=== PATIENT | female | born 1955 | race Caucasian/White ===

== ENCOUNTER 2019-12-07 12:32 | Outpatient (CLI) | payer OTHER, SELFPAY ==
--- NOTE | ~2019-12-07 | XR_ITS ---
XR chest 2V DATE: 12/07/2019 13:08 INDICATION: Cough, vomiting. TECHNIQUE: PA and lateral views COMPARISON: 08/22/2019 CT chest 08/15/2019 2 view chest FINDINGS: There is elevation of the right leaf of the diaphragm compared to 08/15/2019. Previous repo rted 1 cm right midlung nodule is no longer evident. No pulmonary infiltrate or consolidation, pleural effusion or pulmonary vascular congestion or pneumo thorax is detected. IMPRESSION: Probable interval resection of right lung mass since 08/15/2019 and 08/22/2019 No active cardiopulmonary disease Reviewed, dictated and finalized at location A.
== END 2019-12-07 12:33 | disposition home or self-care (01) ==
DX: R05 Cough (principal); R11.10 Vomiting, unspecified
CPT/HCPCS: 71046

== ENCOUNTER 2019-12-15 14:43 | Outpatient (CLI) | payer OTHER, SELFPAY ==
--- NOTE | ~2019-12-15 | CT_ITS ---
EXAMINATION: CT chest w con DATE: 12/15/2019 15:33 INDICATION: Cough TECHNIQUE: Computed tomography (CT) of the chest was performed with 75 cc Omnipaque 350 intravenous c ontrast. The dose-length product was 172.60 mGy-cm. Automated exposure control and iterative reconstr uction technique were employed. COMPARISON: CT dated 08/22/2019 and chest x-ray dated 12/07/2019 FINDINGS: There are surgical changes of right middle lobectomy with interval resection of right middl e lobe mass. Small right pleural effusion with dependent atelectasis. No endobronchial lesions. There is a nonenlarged right paratracheal lymph node measuring 6 mm short axis. No mediastinal or hilar ly mphadenopathy. No evidence for aortic aneurysm or dissection. No focal airspace consolidation. No res idual pulmonary nodules or masses. No endobronchial lesions. Fatty infiltration of the liver. Otherwi se, the visualized aspects of the upper abdomen are unremarkable. IMPRESSION: 1. Small right pleural effusion with underlying compressive atelectasis. 2: Interval surgical changes consistent with right middle lobectomy with resection of associated mass . Reviewed, dictated and finalized at location A. IMPRESSION: 1. Small right pleural effusion with underlying compressive atelectasis. 2: Interval surgical changes consistent with right middle lobectomy with resect ion of associated mass.
[2019-12-15 15:24] LABS: Estimated Glomerular Filt Rate > 60
== END 2019-12-15 14:44 | disposition home or self-care (01) ==
LOC: ANHIMG 14:49
DX: R05 Cough (principal); J90 Pleural effusion, not elsewhere classified; J98.11 Atelectasis; Z90.2 Acquired absence of lung [part of]
CPT/HCPCS: 36415; 71260; Q9967

== ENCOUNTER → 2020-11-13 00:28 | Outpatient (CLI) | payer OTHER, SELFPAY ==
[2020-11-13 18:31] LABS: SARS-CoV-2 RNA PCR Negative
== END ==
PROVIDERS: Visit Provider Internal Medicine Gastroenterology
DX: Z01.812 Encounter for preprocedural laboratory examination (principal); Z20.822 Contact with and (suspected) exposure to COVID-19
CPT/HCPCS: C9803; U0003; U0005

== ENCOUNTER 2020-11-16 04:39 | Day surgery (SDC) | payer OTHER, SELFPAY ==
[2020-11-06 11:42] VITALS: BMI 28.5
[2020-11-16 09:56] VITALS: BP 120/73; PULSE 71; RESP 20; TEMP 36.3; O2SAT 100; BMI 28.5
[2020-11-16] MEDS: LACTATED RINGERS 1,000 ML 150 ML IV CONT (10:09)
--- NOTE | 2020-11-16 10:26 | WPDANESEPPF ---
Anes - Initial Pre Proc Eval Procedure: Operation Date: 11/16/20 10:30 Proposed Procedures p Esophagogastroduodenoscopy - Phu Alvarado MD Date/Time: 11/16/20 10:26 Surgeon: Phu Alvarado MD Pre Op Diagnosis: Dysphagia Patient Data Age: 65 Gender: F Height: 5 ft 3 in Weight: 73 kg Last Vital Signs Temp 97.3 F L 11/16/20 09:56 Pulse 71 11/16/20 09:56 Resp 20 11/16/20 09:56 BP 120/73 11/16/20 09:56 Pulse Ox 100 11/16/20 09:56 Allergies Allergy/AdvReac Type Severity Reaction Status Date / Time Sulfa (Sulfonamide Allergy Unknown Verified 11/22/18 12:43 Antibiotics) Home Medications Medication Instructions Recorded Confirmed Type aspirin 81 mg tablet,delayed 81 mg PO DAILY 06/23/19 11/06/20 History release hydroxychloroquine 200 mg tablet 400 mg PO DAILY tablet 06/23/19 11/06/20 History vitamin B12 500 mcg-folic acid 400 1 tablet PO DAILY 06/23/19 11/06/20 History mcg tablet estradiol 1 mg tablet 1 mg PO DAILY #90 tablet 03/29/20 11/06/20 Rx azathioprine 50 mg tablet 50 mg PO . b.i.d. tablet 05/02/20 11/06/20 History levothyroxine 75 mcg tablet 75 mcg PO DAILY #90 tablet 05/02/20 11/06/20 Rx amitriptyline 50 mg tablet 100 mg PO . q.h.s. #180 tablet 10/30/20 11/06/20 Rx ergocalciferol (vitamin D2) 1,250 50,000 unit PO WEEKLY #12 cap 10/30/20 11/06/20 Rx mcg (50,000 unit) capsule Patient hx anesthesia problems: none Family hx anesthesia problems: none PMFSH Past Medical History Medical History (Updated 10/30/20 @ 14:00 by Papito Rodriguez MD) Azathioprine-induced leukopenia BMI 27.0-27.9,adult Chronic idiopathic constipation Dysphagia GERD with esophagitis Migraine with aura and without status migrainosus Surgical History Surgical History (Updated 05/02/20 @ 14:01 by Jeremias Rose RECRUITING ASSISTANT) History of lung surgery partial right middle lobe removal [place] 2019 Family History Family History (Updated 11/22/18 @ 12:47 by DOCTOR UNKNOWN) Mother Diabetes mellitus Hypertension Patient's mother is in good health Family history of cardiovascular disease Grandparent Diabetes mellitus, Onset Age: 70 Family history of lung cancer Father Patient's father is , Onset Age: 56 Social History Social History Smoking status: Never smoker Alcohol intake: never Substance use: never Substance use type: does not use Living arrangements: with family Spiritual care concerns: No Anes - Eval Final PreProcedure Day of Procedure 11/16/20 10:26 Patient weight: normal Heart: regular rate and rhythm Lungs: clear to auscultation Airway: Mallampati scale class II Neurological: alert and oriented Last oral intake: >/= 8 hours ASA classification: II Emergent: no Anesthetic plan: proceed Anesthesia type and monitoring: general GIVS and standard monitoring Informed Consent: The patient's anesthetic plan and its attendant risks and benefits were discussed with the patient/family/POA. Questions were solicited and answers provided to the satisfaction of the patient/family/POA.
--- NOTE | 2020-11-16 10:29 | PM.HPGS ---
History of Present Illness History of Present Illness Consent: Risks, benefits, and alternatives have been discussed and questions answered. Patient agrees to proceed with procedure. Chief complaint: Dysphagia Narrative: Diana Miranda is a 65 year old female with dysphagia for solid and liquids. This began over a year ago. Not daily, but frequently she will seem to choke on a sip of water or beverage. meat sometimes will cause her to have to stop eating for a minute or 2 until it passes. She does not get heartburn. She has not been losing weight. She does have connective tissue disease diagnosed as lupus. She also has Raynaud's and Sjogren's syndrome, suggestive of scleroderma Review of Systems Review of Systems: All systems reviewed & are unremarkable except as noted in HPI and below PMFSH Past Medical History Medical History Azathioprine-induced leukopenia BMI 27.0-27.9,adult Chronic idiopathic constipation Dysphagia GERD with esophagitis Migraine with aura and without status migrainosus Surgical History Surgical History History of lung surgery partial right middle lobe removal 2019 Family History Family History Mother Diabetes mellitus Hypertension Patient's mother is in good health Family history of cardiovascular disease Grandparent Diabetes mellitus, Onset Age: 70 Family history of lung cancer Father Patient's father is , Onset Age: 56 Social History Social History Smoking status: Never smoker Alcohol intake: never Substance use: never Substance use type: does not use Living arrangements: with family Spiritual care concerns: No Meds Home Medications and Allergies Home Medications Medication Instructions Recorded Confirmed Type aspirin 81 mg tablet,delayed 81 mg PO DAILY 06/23/19 11/06/20 History release hydroxychloroquine 200 mg tablet 400 mg PO DAILY tablet 06/23/19 11/06/20 History vitamin B12 500 mcg-folic acid 400 1 tablet PO DAILY 06/23/19 11/06/20 History mcg tablet estradiol 1 mg tablet 1 mg PO DAILY #90 tablet 03/29/20 11/06/20 Rx azathioprine 50 mg tablet 50 mg PO . b.i.d. tablet 05/02/20 11/06/20 History levothyroxine 75 mcg tablet 75 mcg PO DAILY #90 tablet 05/02/20 11/06/20 Rx amitriptyline 50 mg tablet 100 mg PO . q.h.s. #180 tablet 10/30/20 11/06/20 Rx ergocalciferol (vitamin D2) 1,250 50,000 unit PO WEEKLY #12 cap 10/30/20 11/06/20 Rx mcg (50,000 unit) capsule Allergies Allergy/AdvReac Type Severity Reaction Status Date / Time Sulfa (Sulfonamide Allergy Unknown Verified 11/22/18 12:43 Antibiotics) Vital Signs Vital Signs - 24 hr 11/16/20 09:56 Temperature 36.3 C L Pulse Rate 71 Respiratory Rate 20 Blood Pressure 120/73 Pulse Oximetry 100 Exam Resp: Auscultation: clear to auscultation bilaterally Cardio: Rate: regular rate Rhythm: regular rhythm GI: GI Palp: Yes Soft to palpation and No Tenderness to palpation present (GI) Assessment and Plan Assessment and plan (1) Dysphagia: Code(s): R13.10 - Dysphagia, unspecified Status: Acute Assessment and Plan: EGD with possible biopsy or dilatation or cautery.
[2020-11-16 10:53] VITALS: BP 116/59; PULSE 68; RESP 23; O2SAT 97
[2020-11-16 11:03] VITALS: BP 94/59; PULSE 59; RESP 15; O2SAT 98
[2020-11-16 11:13] VITALS: BP 94/59; PULSE 59; RESP 16; O2SAT 99
== END 2020-11-16 11:34 | disposition home or self-care (01) ==
PROVIDERS: PCP Family Medicine; Visit Provider Internal Medicine Gastroenterology
PROC: 0DJ08ZZ Inspection of Upper Intestinal Tract, Via Natural or Artificial Opening Endoscopic (ICD-10-PCS; CPT 43235; principal; 2020-11-16 10:30)
DX: R13.19 Other dysphagia (principal); K21.9 Gastro-esophageal reflux disease without esophagitis; K29.70 Gastritis, unspecified, without bleeding; Z79.82 Long term (current) use of aspirin
CPT/HCPCS: 43239; 87081; 88305; C9803; J2001; J2704; J7120; U0003; U0005

== ENCOUNTER 2022-05-06 14:35 | Emergency (ER) | payer MEDICARE, OTHER, SELFPAY ==
[2022-05-06] VITALS (13 sets, daily range): BP systolic 107–121; BP diastolic 62–88; PULSE 69–80; RESP 14–29; TEMP 36.7; O2SAT 96–100
--- NOTE | ~2022-05-06 | CT_ITS ---
EXAMINATION: CT abdomen pelvis w con DATE: 05/06/2022 17:22 INDICATION: Left lower quadrant abdominal pain for 4 days TECHNIQUE: Computed tomography (CT) of the abdomen and pelvis was performed with 100 CC Omnipaque 350 intravenous contrast. Automated exposure control and iterative reconstruction technique were employe d. Exam dose: 576.89 mGy-cm total exam DLP. COMPARISON: 04/10/2016 Limited abdominal ultrasound examination, reported normal 01/05/2019 CT abdomen pelvis FINDINGS: The lung bases are clear of infiltrate or consolidation. Normal heart size. No pericardial or pleural effusion. No hepatic, splenic, pancreatic, adrenal or renal space-occupying mass lesion is detected. The gallbl adder is present. No bile duct or pancreatic duct dilatation. No urinary tract calculus or hydrourete ronephrosis. The urinary bladder is unremarkable. Status post hysterectomy. Normal caliber of the abdominal aorta. No intraperitoneal or retroperitoneal or pelvic mass lesion or adenopathy or ascites is noted. Epiploic appendagitis noted in the anterior aspect of the left lower quadrant. This is benign and usu ally self-limited. Normal appendix. No bowel obstruction or bowel wall thickening, pneumatosis or intraperitoneal free a ir is noted otherwise. Moderate degenerative disc disease at L1-2. There is Schmorl's node at the inferior aspect of L1. Severe degenerative disc disease and approximately 3.9 mm retrolisthesis at L2-3. Mild degenerative disc disease and approximately 2.8 mm retrolisthesis at L3-4. Mild degenerative disc disease and grade 1 anterolisthesis at L4-5. There is prominent degenerative c hange at the apophyseal joints at L4-5 and L5-S1. No suspicious osteolytic or osteoblastic lesions are noted. IMPRESSION: Epiploic appendagitis noted in the anterior aspect of the left lower quadrant. This is b enign and usually self-limited. Reviewed, dictated and finalized at Location A. Reviewed, dictated and finalized at location B. IMPRESSION: Epiploic appendagitis noted in the anterior aspect of the left low er quadrant. This is benign and usually self-limited.
[2022-05-06 14:50] LABS: Basophils Percent Auto 0.5 % (0.2-1.2); Eosinophils Absolute Auto 0.1 K/mm3 (0-0.3); Eosinophils Percent Auto 0.9 % (0-4.4); Hematocrit 43.1 % (37.0-47.0); Hemoglobin 13.8 g/dL (12.0-15.0); Immature Granulocyte Absolute 0.02 K/mm3 (0.00-0.031); Immature Granulocyte Percent A 0.4 % (0-0.5); Lymphocytes Absolute Auto 1.15 K/mm3 (0.9-3.2); Lymphocytes Percent Auto 20.7 % (18.3-44.2); Mean Corpuscular Hemoglobin 34.2 pg (26-34); Mean Corpuscular Volume 106.9 fl (80-100); Monocytes Absolute Auto 0.6 K/mm3 (0.1-0.6); Monocytes Percent Auto 11.5 % (2.6-8.5); Neutrophils Absolute Auto 3.7 K/mm3 (1.3-6.7); Platelet Count Result 241 k/mm3 (150-375); Red Blood Count 4.03 M/mm3 (4.2-5.4); Red Cell Distribution Width 12.9 % (11.5-14.5); White Blood Count 5.6 K/mm3 (4.5-10.0)
[2022-05-06 15:00] LABS: Alanine Aminotransferase 23 U/L (6-35); Albumin Level 4.1 g/dL (3.5-5.1); Alkaline Phosphatase 112 U/L (38-126); Anion Gap 12 mmol/L (8-16); Aspartate Amino Transferase 30 U/L (14-36); Bilirubin,Total 0.6 mg/dL (0.2-1.3); Blood Urea Nitrogen 15 mg/dL (7-17); Calcium 8.9 mg/dL (8.4-10.2); Carbon Dioxide 30 mmol/L (22-30); Chloride 98 mmol/L (98-107); Estimated CRCL calculation 47 ml/min; Estimated Glomerular Filt Rate 56; Glucose 98 mg/dL (65-110); Lipase 22 U/L (23-300); Potassium 3.6 mmol/L (3.4-5.0); Sodium 140 mmol/L (137-145)
[2022-05-06 15:20] LABS: Appearance Urine Clear (Clear); Bilirubin Urine Negative (Negative); Blood Urine Negative (Negative); Color Urine Yellow (Yellow); Glucose Urine UA Negative (Negative); Ketones Urine Negative (Negative); Leukocyte Esterase Ur Trace LEU/UL (Negative); Nitrate Urine Negative (Negative); Protein Urine Negative (Negative); Specific Grav Ur 1.015 (1.001-1.035); Urobilinogen Urine 0.2 mg/dL (<2.0); pH Urine 5.5 (5.0-9.0)
[2022-05-06 15:41] LABS: Bacteria Urine Trace /hpf; RBC Urine 0-2 /hpf (0-2); Squamous Epithelial Cell Urine Occasional /hpf (Few)
[2022-05-06 15:42] LABS: Add Urine Microscopic? YES
--- NOTE | 2022-05-06 18:33 | ED.GENADULT ---
HPI - General Adult General Chief complaint: Abdominal Pain Stated complaint: left lower quadrant pain Time Seen by Provider: 05/06/22 15:51 History of Present Illness HPI narrative: Patient is a 66-year-old female who presents ER with left lower quadrant abdominal pain. Ongoing for 5 days. Improving today but referred here by her superior court judge. Patient immunosuppressed due to her lupus. No diarrhea. No fevers or chills or sweats. No vomiting. Pain was worse with moving and twisting and direct palpation. Has had mild relief with leftover [place] at home. Related Data Home Medications Medication Instructions Recorded Confirmed aspirin 81 mg tablet,delayed 81 mg PO DAILY 06/23/19 11/12/21 release (Adult Aspirin Regimen) hydroxychloroquine 200 mg tablet 400 mg PO DAILY 06/23/19 11/12/21 (Plaquenil) vitamin B12 500 mcg-folic acid 400 1 tablet PO DAILY 06/23/19 11/12/21 mcg tablet azathioprine 50 mg tablet 50 mg PO . b.i.d. 05/02/20 11/12/21 Allergies Allergy/AdvReac Type Severity Reaction Status Date / Time Sulfa (Sulfonamide Allergy Intermediate Other Verified 11/12/21 13:35 Antibiotics) Review of Systems Review of Systems: All systems reviewed & are unremarkable except as noted in HPI and below Constitutional: Constitutional: Denies chills, Denies fatigue and Denies fever(s) Cardiovascular: Cardiovascular: Denies chest pain and Denies rapid heart rate Respiratory: Respiratory: Denies cough and Denies dyspnea Gastrointestinal: Gastrointestinal: Reports abdominal pain, Denies diarrhea, Denies nausea and Denies vomiting Genitourinary: Genitourinary: Denies nocturia, Denies dysuria and Denies flank pain [facility] Past Medical History Medical History (Updated 05/06/22 @ 18:35 by Vincenzo Fisher MD) Acute non-recurrent maxillary sinusitis Azathioprine-induced leukopenia BMI 27.0-27.9,adult Chronic idiopathic constipation Dysphagia Exposure to COVID-19 virus (~08/14/21) patient with 3 doses of COVID vaccination. with COVID for 1 week. Patient with symptoms 08/19/2021 GERD with esophagitis EGD 11/16/2020 with nonerosive esophagitis and gastritis Hypothyroidism, unspecified Lupus Migraine with aura and without status migrainosus Mixed hyperlipidemia Raynaud's disease without gangrene Sjogren's syndrome with keratoconjunctivitis sicca Vitamin D deficiency, unspecified Surgical History Surgical History (Updated 11/12/21 @ 16:35 by Lacy Hare MD) H/O hysterectomy with oophorectomy History of lung surgery partial right middle lobe removal 2019 Family History Family History Mother Diabetes mellitus Hypertension Patient's mother is in good health Family history of cardiovascular disease Grandparent Diabetes mellitus, Onset Age: 70 Family history of lung cancer Father Patient's father is , Onset Age: 56 Social History Social History (Updated 11/12/21 @ 13:38 by Safia Bansal MA) Smoking status: Never smoker Alcohol intake: never Substance use: never Substance use type: does not use Gender identity (if verbalized by the patient): Female Spiritual care concerns: No Exam Narrative: GENERAL: Well-appearing, well-nourished, and in no acute distress. HEAD: Normocephalic, atraumatic. CHEST: Clear to auscultation. No respiratory distress. HEART: Regular rate and rhythm. Normal peripheral pulses. ABDOMEN: Soft, tender palpation left lower quadrant with guarding, nondistended, normal active bowel sounds. EXTREMITIES: Normal range of motion. No edema. SKIN: Warm, dry, no rash. NEURO: Alert and oriented x3. PSYCH: Normal mood and affect. Course Course Emergency Course: Informed of results. Verbalized understanding. Discharge home. Vital Signs Vital signs: Vital Signs Temperature 98.1 F 05/06/22 14:36 Pulse Rate 70 05/06/22 14:36 Respiratory Rate 16
== END 2022-05-06 18:52 | disposition home or self-care (01) ==
PROVIDERS: Emergency Provider Emergency Medicine; PCP Nurse Practitioner Family
DX: K63.89 Other specified diseases of intestine (principal); K21.9 Gastro-esophageal reflux disease without esophagitis; E03.9 Hypothyroidism, unspecified; E78.5 Hyperlipidemia, unspecified
CPT/HCPCS: 36415; 74177; 80053; 81001; 83690; 85025; 99284; Q9967

== ENCOUNTER 2022-10-20 08:32 | Emergency (ER) | payer MEDICARE, OTHER, SELFPAY ==
--- NOTE | ~2022-10-20 | XR_ITS ---
EXAMINATION: XR chest 2V DATE: 10/20/2022 09:00 INDICATION: Asthma attack presenting with cough and shortness of breath. TECHNIQUE: PA and lateral views of the chest were obtained. COMPARISON: Chest radiograph dated 12/07/[address] dated 12/15/2019 FINDINGS: Volume loss in the right hemithorax with elevation of the right hemidiaphragm with subtle suture line in the right hilar and infrahilar regions consistent with a prior right middle lobectomy as seen on prior CT. No airspace opacities, pulmonary edema, pleural effusion or pneumothorax. The cardiomediast inal silhouette is normal. Mild thoracic spondylosis. IMPRESSION: 1. Chronic volume loss right hemithorax consistent with prior right middle lobectomy. No acute cardio pulmonary disease. Reviewed, dictated and finalized at location A. PRESS OPERATOR IMPRESSION: 1. Chronic volume loss right hemithorax consistent with prior right middle lobe ctomy. No acute cardiopulmonary disease.
[2022-10-20 08:43] VITALS: BP 127/68; PULSE 82; RESP 20; TEMP 37.2; O2SAT 94
--- NOTE | 2022-10-20 08:47 | ED.GENADULT ---
HPI - General Adult General Chief complaint: Upper Respiratory Infection Stated complaint: SOB Time Seen by Provider: 10/20/22 09:04 Source: patient, RN notes reviewed and old records reviewed Mode of arrival: ambulatory Limitations: no limitations History of Present Illness HPI narrative: 67-year-old female presents to the [facility] with complaints of shortness of breath for the last 3-4 days. Patient states that when she had her lobectomy they told her she had asthma. Has not had any type of symptoms but for the last 3-4 days thinks she is having an asthma attack. Has been taking Mucinex and using her rescue inhaler Onset (ago): day(s) (3-4) Relieving factors: none Associated symptoms: cough and shortness of breath Treatments prior to arrival: other (Albuterol, Mucinex) Related Data Home Medications Medication Instructions Recorded Confirmed aspirin 81 mg tablet,delayed 81 mg PO DAILY 06/23/19 10/20/22 release (Adult Aspirin Regimen) hydroxychloroquine 200 mg tablet 400 mg PO DAILY 06/23/19 10/20/22 (Plaquenil) vitamin B12 500 mcg-folic acid 400 1 tablet PO DAILY 06/23/19 10/20/22 mcg tablet azathioprine 50 mg tablet 50 mg PO . b.i.d. 05/02/20 10/20/22 Allergies Allergy/AdvReac Type Severity Reaction Status Date / Time Sulfa (Sulfonamide Allergy Intermediate Other Verified 10/20/22 08:47 Antibiotics) Review of Systems Review of Systems: All systems reviewed & are unremarkable except as noted in HPI and below Constitutional: Constitutional: Reports no additional constitutional complaints Eyes: Eyes: Reports no additional eye complaints ENT: Reports system reviewed and no additional complaints, except as documented Cardiovascular: Cardiovascular: Reports no additional cardiovascular complaints, Denies chest pain and Denies dyspnea Respiratory: Respiratory: Reports as per HPI, Reports chest congestion, Reports cough, Denies hemoptysis, Reports dyspnea and Reports wheezing Gastrointestinal: Gastrointestinal: Reports no additional gastrointestinal complaints, Denies abdominal pain, Denies nausea and Denies vomiting Musculoskeletal: Musculoskeletal: Reports no additional musculoskeletal complaints Integumentary/Breasts: Skin/Breast: Reports system reviewed and no additional complaints, except as docu Neurologic: Reports system reviewed and no additional complaints, except as documented Psychiatric: Psychiatric: Reports no additional psychiatric complaints Allergic/Immunologic: Allergic/Immunologic: Reports no additional allergic/immunologic complaints PMFSH Past Medical History Medical History Acute non-recurrent maxillary sinusitis Azathioprine-induced leukopenia BMI 27.0-27.9,adult Breast cancer screening by mammogram normal mammogram 09/19/2022. Chronic idiopathic constipation Dysphagia Encounter for osteoporosis screening in asymptomatic postmenopausal patient (09/19/22) DEXA scan 09/19/2022 with T-score 0.9 at the lumbar spine and 0.1 at the hips, normal. Exposure to COVID-19 virus (~08/14/21) patient with 3 doses of COVID vaccination. with COVID for 1 week. Patient with symptoms 08/19/2021 GERD with esophagitis EGD 11/16/2020 with nonerosive esophagitis and gastritis Hypothyroidism, unspecified Lupus Migraine with aura and without status migrainosus Mixed hyperlipidemia Raynaud's disease without gangrene Sjogren's syndrome with keratoconjunctivitis sicca Vitamin D deficiency, unspecified Surgical History Surgical History H/O hysterectomy with oophorectomy History of lung surgery partial right middle lobe removal 2019 Family History Family History Mother Diabetes mellitus Hypertension Patient's mother is in good health Family history of cardiovascular disease Grandparent Diabetes mellitus,
[2022-10-20 09:00] VITALS: O2SAT 94
[2022-10-20] MEDS: IPRATROPIUM BR 0.02% INH SOLN 0.5 MG/2.5 ML VIAL INHALATION (09:07)
[2022-10-20] MEDS: ALBUTEROL SULFATE NEB 2.5 MG/3 ML INH INHALATION (09:07)
[2022-10-20 09:45] VITALS: O2SAT 93
[2022-10-20 09:57] VITALS: PULSE 82; O2SAT 93
== END 2022-10-20 09:57 | disposition home or self-care (01) ==
LOC: EXPCOLL 08:35
PROVIDERS: Emergency Provider Nurse Practitioner; PCP Nurse Practitioner Family
DX: J45.901 Unspecified asthma with (acute) exacerbation (principal); Z20.822 Contact with and (suspected) exposure to COVID-19; K20.90 Esophagitis, unspecified without bleeding; E03.9 Hypothyroidism, unspecified; E78.2 Mixed hyperlipidemia; I73.00 Raynaud's syndrome without gangrene; M35.00 Sjogren syndrome, unspecified; Z86.16 Personal history of COVID-19; Z90.2 Acquired absence of lung [part of]
CPT/HCPCS: 71046; 87426; 87804; 94640; 99213; C9803; G0463

== ENCOUNTER 2022-10-20 10:13 | Emergency (ER) | payer MEDICARE, OTHER, SELFPAY ==
[2022-10-20] VITALS (18 sets, daily range): BP systolic 97–121; BP diastolic 47–67; PULSE 74–93; RESP 16–25; TEMP 36.5; O2SAT 93–100
[2022-10-20] MEDS: ALBUTEROL SULFATE NEB 2.5 MG/3 ML INH 15 MG INHALATION (11:25)
[2022-10-20] MEDS: IPRATROPIUM BR 0.02% INH SOLN 0.5 MG/2.5 ML VIAL 1.5 MG INHALATION (11:25)
[2022-10-20] MEDS: methylPREDNISolone SOD SUCC 125 MG VIAL IV PUSH (11:40)
[2022-10-20 11:48] LABS: Basophils Percent Auto 0.6 % (0.2-1.2); Hematocrit 39.3 % (37.0-47.0); Hemoglobin 12.7 g/dL (12.0-15.0); Immature Granulocyte Absolute 0.01 K/mm3 (0.00-0.031); Immature Granulocyte Percent A 0.2 % (0-0.5); Lymphocytes Absolute Auto 0.94 K/mm3 (0.9-3.2); Lymphocytes Percent Auto 17.3 % (18.3-44.2); Mean Corpuscular HGB Conc 32.3 g/dl (32-36); Mean Corpuscular Volume 105.4 fl (80-100); Monocytes Absolute Auto 0.5 K/mm3 (0.1-0.6); Neutrophils Percent Auto 72.9 % (45.5-73.1); Platelet Count Result 191 k/mm3 (150-375); Red Blood Count 3.73 M/mm3 (4.2-5.4); Red Cell Distribution Width 13.2 % (11.5-14.5); White Blood Count 5.4 K/mm3 (4.5-10.0)
[2022-10-20 11:58] LABS: Alanine Aminotransferase 23 U/L (6-35); Albumin Level 3.9 g/dL (3.5-5.1); Alkaline Phosphatase 98 U/L (38-126); Anion Gap 6 mmol/L (8-16); Aspartate Amino Transferase 31 U/L (14-36); Bilirubin,Total 0.7 mg/dL (0.2-1.3); Blood Urea Nitrogen 10 mg/dL (7-17); Calcium 8.1 mg/dL (8.4-10.2); Carbon Dioxide 27 mmol/L (22-30); Chloride 100 mmol/L (98-107); Estimated CRCL calculation 48 ml/min; Estimated Glomerular Filt Rate 55; Glucose 91 mg/dL (65-110); Potassium 3.6 mmol/L (3.4-5.0); Sodium 133 mmol/L (137-145)
[2022-10-20 12:16] LABS: Macrocytosis 1+ (NORMAL); Platelet Estimate Adequate (Adequate); Schistocytes None Seen (NORMAL)
--- NOTE | 2022-10-20 12:27 | ED.SOB ---
HPI - SOB/Dyspnea General Chief Complaint: Shortness of Breath/Dyspnea Stated Complaint: shortness of breath Time Seen by Provider: 10/20/22 11:07 History of Present Illness HPI Narrative: Patient is a 67-year-old female who presents ER with shortness of breath. Ongoing for 4 days. Associated with frequent coughing. Went to urgent care and was referred here due to her abnormal lung sounds after nebulizer treatment. No hypoxia. Negative COVID and chest x-ray. Patient has no chest pain or chest pressure. No known sick contacts. No fevers or chills or sweats. Related Data Home Medications Medication Instructions Recorded Confirmed aspirin 81 mg tablet,delayed 81 mg PO DAILY 06/23/19 10/20/22 release (Adult Aspirin Regimen) hydroxychloroquine 200 mg tablet 400 mg PO DAILY 06/23/19 10/20/22 (Plaquenil) vitamin B12 500 mcg-folic acid 400 1 tablet PO DAILY 06/23/19 10/20/22 mcg tablet Allergies Allergy/AdvReac Type Severity Reaction Status Date / Time Sulfa (Sulfonamide Allergy Intermediate Other Verified 10/20/22 08:47 Antibiotics) Review of Systems Review of Systems: All systems reviewed & are unremarkable except as noted in HPI and below Constitutional: Constitutional: Denies chills, Reports fatigue and Denies fever(s) ENT: Reports nasal congestion and Reports sore throat Cardiovascular: Cardiovascular: Denies chest pain, Denies rapid heart rate and Denies radiating jaw, neck or arm pain Respiratory: Respiratory: Reports cough, Reports dyspnea and Reports wheezing Gastrointestinal: Gastrointestinal: Denies abdominal pain, Denies nausea and Denies vomiting PMFSH Past Medical History Medical History Acute non-recurrent maxillary sinusitis Azathioprine-induced leukopenia BMI 27.0-27.9,adult Breast cancer screening by mammogram normal mammogram 09/19/2022. Chronic idiopathic constipation Dysphagia Encounter for osteoporosis screening in asymptomatic postmenopausal patient (09/19/22) DEXA scan 09/19/2022 with T-score 0.9 at the lumbar spine and 0.1 at the hips, normal. Exposure to COVID-19 virus (~08/14/21) patient with 3 doses of COVID vaccination. with COVID for 1 week. Patient with symptoms 08/19/2021 GERD with esophagitis EGD 11/16/2020 with nonerosive esophagitis and gastritis Hypothyroidism, unspecified Lupus Migraine with aura and without status migrainosus Mixed hyperlipidemia Raynaud's disease without gangrene Sjogren's syndrome with keratoconjunctivitis sicca Vitamin D deficiency, unspecified Surgical History Surgical History H/O hysterectomy with oophorectomy History of lung surgery partial right middle lobe removal 2019 Family History Family History Mother Diabetes mellitus Hypertension Patient's mother is in good health Family history of cardiovascular disease Grandparent Diabetes mellitus, Onset Age: 70 Family history of lung cancer Father Patient's father is , Onset Age: 56 Social History Social History Smoking status: Never smoker Alcohol intake: never Substance use: never Substance use type: does not use Living arrangements: with family Occupation/Education: retired Gender identity (if verbalized by the patient): Female Spiritual care concerns: No Exam Narrative: GENERAL: Well-appearing, well-nourished, and in no acute distress. HEAD: Normocephalic, atraumatic. ENT: Mucous membranes moist. NECK: Supple. CHEST: Coarse wheezing and rales throughout. No respiratory distress. HEART: Regular rate and rhythm. Normal peripheral pulses. ABDOMEN: Soft, nontender, nondistended. EXTREMITIES: Normal range of motion. No edema. SKIN: Warm, dry, no rash. NEURO: Alert and oriented x3. PSYCH:
== END 2022-10-20 14:33 | disposition home or self-care (01) ==
PROVIDERS: Emergency Provider Emergency Medicine; PCP Nurse Practitioner Family
DX: J40 Bronchitis, not specified as acute or chronic (principal); E78.2 Mixed hyperlipidemia; I73.00 Raynaud's syndrome without gangrene; M35.01 Sjogren syndrome with keratoconjunctivitis; K21.00 Gastro-esophageal reflux disease with esophagitis, without bleeding; E03.9 Hypothyroidism, unspecified; E55.9 Vitamin D deficiency, unspecified; Z90.2 Acquired absence of lung [part of]; Z79.82 Long term (current) use of aspirin; Z90.710 Acquired absence of both cervix and uterus
CPT/HCPCS: 36415; 71046; 80053; 85025; 87426; 87804; 94640; 94664; 96374; 99284; C9803; J2930

== ENCOUNTER 2023-02-26 09:16 | Outpatient (CLI) | payer MEDICARE, OTHER, SELFPAY ==
--- NOTE | ~2023-02-26 | CT_ITS ---
EXAMINATION: CT diagnostic chest wo con DATE: 02/26/2023 09:33 INDICATION: History of partial right pneumonectomy TECHNIQUE: Computed tomography (CT) of the chest was performed without intravenous contrast. The dose -length product (DLP) was 164.02 mGy-cm. Automated exposure control and iterative reconstruction tech [employer] were employed. COMPARISON: 12/15/2019 FINDINGS: There are changes of right middle lobectomy. The lungs are free of acute opacities. No pleu ral effusion or pneumothorax. No pathologically enlarged thoracic lymph nodes are identified. The hea rt size is normal. Calcified coronary artery atherosclerosis is noted. There is mild thoracic spondyl osis. IMPRESSION: 1. Changes of right middle lobectomy without acute cardiopulmonary abnormality. Reviewed, dictated and finalized at location L.
== END 2023-02-26 09:17 | disposition home or self-care (01) ==
PROVIDERS: PCP Nurse Practitioner Family; Visit Provider Nurse Practitioner
DX: Z90.2 Acquired absence of lung [part of] (principal)
CPT/HCPCS: 71250

== ENCOUNTER 2023-03-09 13:55 | Outpatient (CLI) | payer MEDICARE, OTHER, SELFPAY ==
--- NOTE | 2023-03-10 16:41 | P.PCNPFT_ITS ---
PFT Procedure Performed PFT Procedure Performed Spirometry with Pre/Post Bronchodilator Plethysmography (Lung Vol) Diffusing Cap (DLCO) Flow Vol Loop PFT Interpretation DOS: 03/09/2023 REQUESTING: Flor Ayala [facility] REASON FOR TESTING: asthma PULMONARY FUNCTION TESTS Results are reliable and reproducible. Spirometry: pre bronchodilator FEV1 is 1.57 L, 70%, reduced. Pre bronchodilator FVC is 2.26 L, 79%, low end of normal. FEV1/ FVC ratio is 69%, normal. After bronchodilator there is a 4% increase in FEV1 and a 2% decrease in the FVC. These are not statistically significant. The ratio is 74%, normal. FEF 25-75 is 48% predicted, 0.94 L at this 33%, 1.25 L, 63% predicted. Lung volumes: Total lung capacity is 3.94 L, 80% predicted, normal. Residual volume is 1.67 L, 81% predicted, normal. RV /TLC is 43%, normal. Diffusion: DLCO is 14.8, 72% predicted, normal. DLCO/ VA is 4.56, 104%, normal. Flow volume loop: There is mild coving of the expiratory limb consistent with airflow obstruction. IMPRESSION: This study shows mild obstructive ventilatory impairment which is significant in the small airways. The response to bronchodilator is not statistically significant. Normal lung volumes, normal diffusion. The proper clinical setting this pattern can be seen in asthma. Lack of response to bronchodilators should not preclude use of clinically indicated. Hiwot Tapia MD
== END 2023-03-09 13:56 | disposition home or self-care (01) ==
PROVIDERS: PCP Nurse Practitioner Family; Visit Provider Nurse Practitioner
DX: J45.909 Unspecified asthma, uncomplicated (principal); R94.2 Abnormal results of pulmonary function studies
CPT/HCPCS: 94060; 94726; 94729

== ENCOUNTER 2023-11-24 09:44 | Emergency (ER) | payer MEDICARE, SELFPAY ==
--- NOTE | 2023-11-24 09:52 | ED.EAR ---
HPI - Ear Problem General Chief complaint: Ear Stated complaint: Both Ears Irritation Time Seen by Provider: 11/24/23 10:00 Source: patient Mode of arrival: ambulatory Limitations: no limitations History of Present Illness HPI Narrative: Diana is a 68-year-old female patient presenting to the clinic today with complaints of ear pain left greater than right this been going on for the past 4 days. She reports that she has been having runny nose and nasal congestion. Denies any fever or chills. Related Data Home Medications Medication Instructions Recorded Confirmed aspirin 81 mg tablet,delayed 81 mg PO DAILY 06/23/19 11/24/23 release (Adult Aspirin Regimen) hydroxychloroquine 200 mg tablet 400 mg PO DAILY 06/23/19 11/24/23 (Plaquenil) azathioprine 50 mg tablet 25 mg PO DAILY 06/23/23 11/24/23 Allergies Allergy/AdvReac Type Severity Reaction Status Date / Time Sulfa (Sulfonamide Allergy Intermediate Other Verified 11/24/23 09:49 Antibiotics) Review of Systems Review of Systems: Pertinent positives per HPI. Patient denies any fever, chills, rash, headache, visual changes, dizziness, cough, runny nose, sore throat, shortness of breath, chest pain, palpitations, nausea, vomiting, diarrhea, constipation, abdominal pain, or any urinary issues. [facility] Past Medical History Medical History (Updated 11/24/23 @ 10:07 by Roney Clark APRN) Acute non-recurrent maxillary sinusitis Azathioprine-induced leukopenia BMI 27.0-27.9,adult Breast cancer screening by mammogram normal mammogram 09/19/2022. Normal mammogram 09/28/2023. Chronic idiopathic constipation Dysphagia Encounter for osteoporosis screening in asymptomatic postmenopausal patient (09/19/22) DEXA scan 09/19/2022 with T-score 0.9 at the lumbar spine and 0.1 at the hips, normal. Exposure to COVID-19 virus (~08/14/21) patient with 3 doses of COVID vaccination. with COVID for 1 week. Patient with symptoms 08/19/2021 GERD with esophagitis EGD 11/16/2020 with nonerosive esophagitis and gastritis Hypothyroidism, unspecified Lupus Migraine with aura and without status migrainosus Mixed hyperlipidemia Raynaud's disease without gangrene Sjogren's syndrome with keratoconjunctivitis sicca Vitamin D deficiency, unspecified Surgical History Surgical History H/O bladder repair surgery 10/2022 H/O hysterectomy with oophorectomy History of lung surgery partial right middle lobe removal 2019 Family History Family History Mother Diabetes mellitus Hypertension Patient's mother is in good health Family history of cardiovascular disease Grandparent Diabetes mellitus, Onset Age: 70 Family history of lung cancer Father Patient's father is , Onset Age: 56 Social History Social History Smoking status: Never smoker Alcohol intake: never Substance use: never Substance use type: does not use Lack of Transportation: No Lack of Food: Never True Current Housing: I Have Housing Concerned About Future Housing: No Difficulty Paying Gas/Electric Bills: No Difficulty Paying for Meds: No Currently Unemployed: No Education: High School Diploma/GED Difficulty w/ Childcare or Family Care: No Living arrangements: with family Occupation/Education: retired Gender identity (if verbalized by the patient): Female Sexual Orientation (if Verbalized by the Patient): Straight or Heterosexual Spiritual care concerns: No Comments At the time of my signature, I reviewed and agree with the nursing past medical, surgical, social, and family history. There is no relevant family history pertinent to the patient complaint. Exam Narrative: General: Well-developed, well nourished, in no apparent distress Head: Normocephal
[2023-11-24 09:59] VITALS: BP 111/62; PULSE 78; RESP 16; TEMP 36.6; O2SAT 99
== END 2023-11-24 10:12 | disposition home or self-care (01) ==
PROVIDERS: Emergency Provider Nurse Practitioner Family; PCP Nurse Practitioner Family
DX: H66.92 Otitis media, unspecified, left ear (principal); K21.00 Gastro-esophageal reflux disease with esophagitis, without bleeding; E03.9 Hypothyroidism, unspecified; E78.2 Mixed hyperlipidemia; I73.00 Raynaud's syndrome without gangrene; M35.01 Sjogren syndrome with keratoconjunctivitis; E55.9 Vitamin D deficiency, unspecified; Z79.82 Long term (current) use of aspirin
CPT/HCPCS: 99213; G0463

== ENCOUNTER 2025-08-09 10:46 | Emergency (ER) | payer MEDICARE, SELFPAY ==
[2025-08-09 11:02] VITALS: BP 114/64; PULSE 81; RESP 18; TEMP 36.4; O2SAT 99
--- NOTE | 2025-08-09 11:06 | ED.URI ---
HPI - URI/Sore Throat General Chief Complaint: Upper Respiratory Infection Stated Complaint: Cough,Sore throat Time Seen by Provider: 08/09/25 11:06 Source: patient, RN notes reviewed and old records reviewed Mode of arrival: ambulatory Limitations: no limitations History of Present Illness HPI Narrative: 69-year-old female presents to the [facility] with 3 day history of cough, a sore throat and sinus congestion since yesterday. No treatment prior to arrival. Related Data Home Medications ?Medication ?Instructions ?Recorded ?Confirmed ?Last Taken ?Type aspirin 81 mg tablet,delayed 81 mg PO DAILY 06/23/19 06/28/24 11/15/20 History release (Adult Aspirin Regimen) hydroxychloroquine 200 mg tablet 400 mg PO DAILY 06/23/19 06/28/24 11/15/20 History (Plaquenil) azathioprine 50 mg tablet 25 mg PO DAILY 06/23/23 06/28/24 Unknown History amitriptyline 100 mg tablet mg 08/09/25 Unknown History famotidine 40 mg tablet mg 08/09/25 Unknown History fluticasone 500 mcg-salmeterol 50 inhalation 08/09/25 Unknown History mcg/dose blistr powdr for inhalation levothyroxine 88 mcg tablet mcg 08/09/25 Unknown History pilocarpine HCl 5 mg tablet mg 08/09/25 Unknown History Allergies Allergy/AdvReac Type Severity Reaction Status Date / Time Sulfa (Sulfonamide Allergy Intermediate Other Verified 08/09/25 11:04 Antibiotics) Review of Systems Review of Systems: All systems reviewed & are unremarkable except as noted in HPI and below Constitutional: Constitutional: Reports no additional constitutional complaints ENT: Reports as per HPI, Reports nasal congestion, Reports sinus pressure and Reports sore throat Cardiovascular: Cardiovascular: Reports no additional cardiovascular complaints, Denies chest pain and Denies dyspnea Respiratory: Respiratory: Reports as per HPI, Denies chest congestion, Reports cough and Denies dyspnea Musculoskeletal: Musculoskeletal: Reports no additional musculoskeletal complaints Integumentary/Breasts: Skin/Breast: Reports system reviewed and no additional complaints, except as docu [facility] Past Medical History Medical History Encounter for osteoporosis screening in asymptomatic postmenopausal patient (09/19/22) DEXA scan 09/19/2022 with T-score 0.9 at the lumbar spine and 0.1 at the hips, normal. Breast cancer screening by mammogram normal mammogram 09/19/2022. Normal mammogram 09/28/2023. Lupus Exposure to COVID-19 virus (~08/14/21) patient with 3 doses of COVID vaccination. with COVID for 1 week. Patient with symptoms 08/19/2021 Acute non-recurrent maxillary sinusitis BMI 27.0-27.9,adult Migraine with aura and without status migrainosus Dysphagia GERD with esophagitis EGD 11/16/2020 with nonerosive esophagitis and gastritis Chronic idiopathic constipation Azathioprine-induced leukopenia Hypothyroidism, unspecified Mixed hyperlipidemia Raynaud's disease without gangrene Sjogren's syndrome with keratoconjunctivitis sicca Vitamin D deficiency, unspecified Surgical History Surgical History H/O bladder repair surgery 10/2022 H/O hysterectomy with oophorectomy History of lung surgery partial right middle lobe removal 2019 Family History Family History Mother Diabetes mellitus Hypertension Patient's mother is in good health Family history of cardiovascular disease Grandparent Diabetes mellitus, Onset Age: 70 Family history of lung cancer Father Patient's father is , Onset Age: 56 Social History Social History Smoking status: Never smoker Alcohol intake: never Substance use: never Substance use type: does not use Lack of Transportation: No Lack of Food: Never True Current Housing: Decline to Answer Concerned About Future Housing: Decline to Answer Difficulty Paying Gas/Electric Bills: Decline to Answer Difficulty Paying for Meds: Decline to Answer Currently Unemployed: Decline to Answer Education: Decline to Answer Difficulty w/ Childcare or Family Care: Decline to Answer Living arrangements: with family Occupation/Education: retired Gender identity (if verbalized by the patient): Female Sexual Orientation (if Verbalized by the Patient): Straight or Heterosexual Spiritual care concerns: No Comments At the time of my signature, I reviewed and agree with the nursing past medical, surgical, social, and family history. There is no relevant family history pertinent to the patient complaint. Exam Const: General: cooperative, healthy appearing, comfortable, no acute distress, well developed, alert and well nourished Nutritional Appearance: well nourished Orientation/consciousness: patient oriented x3 Limitations: no limitations HENMT: Head: normal to inspection Ears: hearing grossly normal bilaterally, external ears normal, TM's normal bilaterally, EAC's normal, mastoids normal and no periauricular adenopathy Face and sinus: normal facial exam and face symmetric Mouth: Yes Normal oral and palatal mucosa present, Yes lip normal, Yes tongue normal and Yes moist mucous membranes Throat: posterior oropharynx normal, uvula midline and no uvular edema Eyes: General: appearance normal, both eyes and all related structures Alignment and Position: alignment normal Neck: Neck: normal visual inspection, full ROM, no lymphadenopathy and no meningeal signs Chest: Chest palpation & inspection: normal inspection of the chest Resp: Effort & Inspection: normal respiratory effort and able to speak in complete sentences Auscultation: clear to auscultation bilaterally, no crackles, no rales, no rhonchi and no wheezes Cardio: Rate: regular rate Skin: General skin exam: normal color and no rashes or lesions noted Neuro: General: patient oriented x3, gait normal, moves all extremities and no meningeal signs Cognition (Neuro): normal cognition Speech: normal speech Gait exam (Neuro): Normal gait present Extrem: General: normal to inspection, full ROM, capillary refill normal and normal gait Psych: Appearance: grossly normal and well kempt Mental Status: mental status grossly normal Speech and movement: Normal speech and movement present and Clear speech present Affect: normal affect Attitude: cooperative Course Course Level of Care: Express Care Visit Vital Signs Vital signs: Vital Signs Temperature 97.6 F 08/09/25 11:02 Pulse Rate 81 08/09/25 11:02 Respiratory Rate 18 08/09/25 11:02 Blood Pressure 114/64 08/09/25 11:02 Pulse Oximetry 99 08/09/25 11:02 Oxygen Delivery Room Air 08/09/25 11:02 Temperature 97.6 F 08/09/25 11:02 Pulse Rate 81 08/09/25 11:02 Respiratory Rate 18 08/09/25 11:02 Blood Pressure 114/64 08/09/25 11:02 Pulse Oximetry 99 08/09/25 11:02 Oxygen Delivery Room Air 08/09/25 11:02 reviewed MDM MDM Narrative Medical decision making narrative: Patient sitting in exam room. Patient is nontoxic, vitals stable. Patient presents with 3 day history of cough, 1 day history of URI symptoms. No treatment prior to arrival. Patient was tested for flu COVID and strep. Patient is COVID positive. Patient is appropriate for outpatient treatment with close follow-up Discharge instructions reviewed with patient, as well as provided in writing per nursing staff. The instructions also include specific and strict return/GO TO THE ER as well as f/u information. All questions have been answered, and the patient deny any further questions with discharge and discharge plan. Some parts of this dictation were generated by voice recognition software and may contain typographical and/or grammatical inaccuracies. Differential Diagnosis Differential Diagnosis: Differential diagnostic considerations for upper respiratory infection include upper respiratory infection, croup, otitis media, sinusitis, viral infection, bronchitis, influenza, pharyngitis, strep, uvulitis.? Lab Data Labs: Lab Results 08/09/25 08/09/25 Range/Units 11:07 11:08 POC Influenza A Ag Negative (Negative) POC Influenza B Ag Negative (Negative) POC SARS CoV-2 Ag Positive (Negative) POC Grp A Strep Screen Negative (Negative) Reviewed Discharge Plan Discharge Clinical Impression: COVID-19 Patient Disposition: Home Condition: Stable Instructions: Antibiotic Form, COVID-19 (Coronavirus Disease 2019) (ED), COVID-19: Slow the Coronavirus Spread (ED) Additional Instructions: Your rapid strep swab was negative today at [facility]. A throat culture will be sent to the laboratory for further testing. If the test is positive, you will receive a phone call within 48 hours and an appropriate antibiotic will be initiated at that time. Your rapid COVID test was positive for COVID-19 Your rapid flu test was negative Your symptoms likely due to a viral illness, which is not treated with antibiotics. Typically viral infections last 7-10 days, can linger for couple of weeks. It is very important to treat your symptoms. Drink plenty of water, Gatorade, Pedialyte, ice pops or Jell-O. -Alternate Tylenol and Motrin per package directions for fever or pain. You can alternate every 4 hours -Antihistamine medication such as Zyrtec/Claritin/Lorrie during the day can help improve symptoms. -doing daily nasal irrigations can help relieve pressure your sinuses. Things like a Neti pot -Use Flonase twice a day for 5 days then daily to help reduce the inflammation and dry up your sinuses. -You can also use Mucinex. Be sure to drink plenty of water with this medication at least 8 ounces with every dose and it is important to drink 8 to 10 glasses of water per day. Water is a natural decongestant -Eat and drink things that are easy to swallow, like tea or soup, or popsicles. -Oral rinses such as: Salt water gargles and/or may use topical anesthetic (eg. Chloraseptic spray) or lozenges to relieve dryness or throat pain). -Frequent hand washing or hand transport truck driver is one of the best ways to prevent spread of infection. -Using a vaporizer or humidifier at night will also help thin secretions and help with coughing up phlegm. -Follow up with primary care provider in 7-10 days if condition is not improving - For new or worsening symptoms go directly to the nearest ER Patient Language: Togolese Prescriptions: No Action pilocarpine HCl 5 mg tablet famotidine 40 mg tablet levothyroxine 88 mcg tablet fluticasone propion-salmeterol 500-50 mcg/dose blister with device INHALATION amitriptyline 100 mg tablet azathioprine 50 mg tablet 25 mg PO DAILY estradiol 0.01 % (0.1 mg/gram) cream 1 g vaginal 3XW Qty: 42.5 5RF Rx Instructions: With the first week of use; use 1g vaginally every day for 7 days, then continue using every other day after that albuterol sulfate 90 mcg/actuation HFA aerosol inhaler 4 puff INHALATION QID PRN (Reason: shortness of breath or wheezing) Qty: 8 0RF aspirin [Adult Aspirin Regimen] 81 mg tablet,delayed release (DR/EC) 81 mg PO DAILY hydroxychloroquine [Plaquenil] 200 mg tablet 400 mg PO DAILY Follow-up/Referrals: [place],CHERELLE Cano [Primary Care Provider, Unknown] - 2 Weeks Clinical Impression: COVID-19 Stand Alone Forms: Work/School Release IP Time of Disposition: 11:12
[2025-08-09 11:09] LABS: EDCOVIDSCREEN Positive (Negative)
[2025-08-09 11:09] LABS: EDINFLUASCREEN Negative (Negative); EDINFLUBSCREEN Negative (Negative); EDSTREPNEGPOS1 Negative (Negative)
== END 2025-08-09 11:15 | disposition home or self-care (01) ==
PROVIDERS: Emergency Provider Nurse Practitioner; PCP Physician Assistant
DX: U07.1 COVID-19 (principal); K21.00 Gastro-esophageal reflux disease with esophagitis, without bleeding; E03.9 Hypothyroidism, unspecified; E78.2 Mixed hyperlipidemia; I73.00 Raynaud's syndrome without gangrene; M35.00 Sjogren syndrome, unspecified; E55.9 Vitamin D deficiency, unspecified; Z79.82 Long term (current) use of aspirin
CPT/HCPCS: 87081; 87426; 87804; 87880; 99213; G0463